=== PATIENT | female | born 1960 | race Caucasian/White ===

== ENCOUNTER 2021-11-30 09:05 | Inpatient (IN) | payer MEDICAID ==
[~2021-11-30] VITALS: Ht 170.2 cm; Wt 104.5 kg
[2021-11-30 09:34] LABS: BASOPHILS % (AUTO) 0.7 % (0-1); EOSINOPHILS # (AUTO) 0.2 X10'3 (0-0.9); EOSINOPHILS % (AUTO) 2.4 % (0-6); HEMATOCRIT 38.5 % (35.0-45.0); HEMOGLOBIN 12.8 g/dl (12.0-16.0); LYMPHOCYTES % (AUTO) 29.2 % (21-51); MEAN CORPUSCULAR HEMOGLOBIN 29.2 PG (27.0-31.0); MEAN CORPUSCULAR HGB CONC 33.2 g/dL (33.0-36.5); MEAN PLATELET VOLUME 7.7 FL (7.4-10.4); MONOCYTES # (AUTO) 0.6 X10'3 (0-0.9); MONOCYTES % (AUTO) 8.7 % (2-12); PLATELET COUNT 333 X10'3 (140-440); RED BLOOD COUNT 4.38 X10'6 (4.20-5.60); WHITE BLOOD COUNT 6.7 X10'3 (4.5-11.0)
[2021-11-30] MEDS ORDERED: ondansetron/PF 4mg/2ml inj IV ONE (09:40)
[2021-11-30] MEDS ORDERED: normal saline 1000ML IV soln IVB ONE (09:40)
[2021-11-30 09:46] LABS: ALANINE AMINOTRANSFERASE 8 U/L (12-78); ALBUMIN 3.3 G/DL (3.4-5.0); ALBUMIN/GLOBULIN RATIO 0.7 (1.1-1.5); ALKALINE PHOSPHATASE 89 IU/L (46-116); ANION GAP 12 (8-16); ASPARTATE AMINO TRANSFERASE 17 U/L (10-37); BILIRUBIN,TOTAL 0.6 MG/DL (0.1-1.0); BLOOD UREA NITROGEN 17 MG/DL (7-18); BUN/CREATININE RATIO 18.3 (6.6-38.0); CALCIUM 9.2 MG/DL (8.5-10.1); CHLORIDE 106 MMOL/L (99-107); CREATININE 0.93 MG/DL (0.40-0.90); GLUCOSE 193 MG/DL (70-104); POTASSIUM 3.7 MMOL/L (3.5-5.1); SODIUM 144 MMOL/L (135-145); TOTAL CARBON DIOXIDE 26.5 MMOL/L (24-32); TOTAL PROTEIN 7.9 G/DL (6.4-8.2); eGFR 62 ML/MIN
[2021-11-30 09:54] LABS: CLARITY,URINE CLOUDY (Clear); COLOR,URINE YELLOW (Yellow); GLUCOSE, URINE NEGATIVE (Neg); KETONES,URINE NEGATIVE (Neg); LEUKOCYTE ESTERASE ,URINE TRACE (Neg); NITRITES, URINE NEGATIVE (Neg); OCCULT BLOOD,URINE LARGE (Neg); PH,URINE 5.5 (4.8-8.0); PROTEIN,URINE 100 mg/dl (Neg); UROBILINOGEN,URINE 0.2 E.U/dL (0.2-1.0)
[2021-11-30 09:54] LABS: LIPASE 444 U/L (73-393)
[2021-11-30 10:02] LABS: UA COLLECTION TYPE CLN CATCH MIDSTREAM
[2021-11-30 10:03] LABS: MUCUS STRANDS MODERATE /LPF (Neg); SQUAMOUS EPITHELIAL CELL,UR MANY /LPF (FEW)
[2021-11-30 10:04] LABS: BACTERIA,URINE 1+ /HPF (Neg); RBC,URINE 20-50 /HPF (0-2)
[2021-11-30] MEDS: morphine 4 MG/ML inj SYRINge IV PRN ×2 (10:23→12:03)
[2021-11-30] MEDS ORDERED: ketorolac trometh. 30mg/ml inj. IV ONE (11:10)
[2021-11-30] MEDS: cefepime 1GM/NS ADD-VANTAGE 100 ML IV ONE ×2 (11:22→12:03)
[2021-11-30] MEDS ORDERED: ondansetron 4mg rapidly disintigrating tab PO PRN (13:00)
[2021-11-30] MEDS ORDERED: POTASSIUM BICARB 20meq eff tab 20 MEQ TABLET.EFF PO PRN ×2 (13:00)
[2021-11-30] MEDS ORDERED: acetaminophen 325mg tablet PO PRN (13:00)
[2021-11-30] MEDS ORDERED: ondansetron/PF 4mg/2ml inj IV PRN (13:00)
[2021-11-30] MEDS ORDERED: magnesium Cl slow-release 64mg tablet PO PRN (13:00)
[2021-11-30] MEDS ORDERED: potassium CL 10mEq/100ml bag 100 ML IV PRN (13:00)
[2021-11-30] MEDS ORDERED: magnesium 2GM in 50ml NS 50 ML IV PRN (13:00)
[2021-11-30] MEDS ORDERED: magnesium 4gm in 100ml NS 100 ML IV PRN (13:00)
[2021-11-30 13:50] LABS: MAGNESIUM 1.5 MG/DL (1.5-2.4); POTASSIUM 3.7 MMOL/L (3.5-5.1)
[2021-11-30] MEDS: morphine 2 MG/ML inj. syringe IV PRN (16:15)
[2021-11-30] MEDS: normal saline 1000ml 1,000 ML IV SCH ×2 (16:16→23:00)
[2021-11-30] MEDS ORDERED: METF-438 PO (17:20)
[2021-11-30] MEDS ORDERED: GABA600T13 PO (17:21)
[2021-11-30] MEDS ORDERED: METO-395 PO (17:21)
[2021-11-30] MEDS ORDERED: BUME1TAB8 PO (17:22)
[2021-11-30] MEDS ORDERED: ATOR80TA PO (17:22)
[2021-11-30] MEDS ORDERED: POTA8CAP20 PO (17:23)
[2021-11-30] MEDS ORDERED: DULO60CA59 PO (17:23)
[2021-11-30] MEDS ORDERED: FURO-150 PO (17:24)
--- NOTE | 2021-11-30 17:41 | NUR ---
PATIENT C/O FEELING HUNGRY AND IS ORDERED TO BE NPO. PAGE SENT TO DR. CRISTOBAL FOR DIET ORDER. PAGER ID: [phone] MESSAGE: ER BED #16 ELIZABETH. PATIENT IS STILL NPO. CAN SHE HAVE DIET ORDER? SHE IS TYPE 2 DIABETIC. BG THIS MORNING WAS 193. THANKS, MILY [phone]
[2021-11-30] MEDS: K and/or MAG REPLACEMENT MC SCH (20:00)
[2021-11-30] MEDS: HYDROcodone/acetaminophen 5mg/325mg tablet PO PRN (20:12)
[2021-11-30] MEDS: tamsulosin 0.4mg capsule PO SCH (20:12)
--- NOTE | 2021-11-30 20:15 | NUR ---
PT DAUGHTER IS APPROVED POC. CRYSTAL: [phone] or [phone]
[2021-11-30] MEDS ORDERED: temazepam 15mg capsule PO PRN (21:00)
[2021-11-30 21:54] VITALS: BP 160/89
[2021-11-30 22:02] LABS: HEMOGLOBIN A1C 6.2 % (4.5-6.2)
[2021-12-01] VITALS (14 sets, daily range): BP systolic 110–156; BP diastolic 51–89
[2021-12-01] MEDS: normal saline 1000ml 1,000 ML IV SCH ×2 (05:18→15:06)
[2021-12-01] MEDS: morphine 2 MG/ML inj. syringe IV PRN ×5 (05:20→22:31)
[2021-12-01 05:56] LABS: BASOPHILS % (AUTO) 0.4 % (0-1); EOSINOPHILS % (AUTO) 0.7 % (0-6); HEMATOCRIT 33.8 % (35.0-45.0); HEMOGLOBIN 11.1 g/dl (12.0-16.0); LYMPHOCYTES # (AUTO) 1.5 X10'3 (1.1-4.8); LYMPHOCYTES % (AUTO) 26.5 % (21-51); MEAN CORPUSCULAR HEMOGLOBIN 29.2 PG (27.0-31.0); MEAN CORPUSCULAR HGB CONC 32.8 g/dL (33.0-36.5); MEAN CORPUSCULAR VOLUME 88.8 FL (78-98); MEAN PLATELET VOLUME 7.8 FL (7.4-10.4); MONOCYTES # (AUTO) 0.6 X10'3 (0-0.9); MONOCYTES % (AUTO) 9.9 % (2-12); NEUTROPHILS # (AUTO) 3.6 X10'3 (1.8-7.7); NEUTROPHILS % (AUTO) 62.5 % (42-75); PLATELET COUNT 251 X10'3 (140-440); RED BLOOD COUNT 3.81 X10'6 (4.20-5.60); RED CELL DISTRIBUTION WIDTH 12.9 % (11.5-14.5); WHITE BLOOD COUNT 5.7 X10'3 (4.5-11.0)
[2021-12-01 06:00] LABS: ALBUMIN 2.7 G/DL (3.4-5.0); ANION GAP 9 (8-16); BLOOD UREA NITROGEN 20 MG/DL (7-18); BUN/CREATININE RATIO 21.1 (6.6-38.0); CALCIUM 8.7 MG/DL (8.5-10.1); CHLORIDE 108 MMOL/L (99-107); CREATININE 0.95 MG/DL (0.40-0.90); GLUCOSE 108 MG/DL (70-104); MAGNESIUM 1.7 MG/DL (1.5-2.4); POTASSIUM 4.2 MMOL/L (3.5-5.1); SODIUM 145 MMOL/L (135-145); TOTAL CARBON DIOXIDE 27.8 MMOL/L (24-32); eGFR 60 ML/MIN
--- NOTE | 2021-12-01 07:01 | NUR ---
Patient in room [facility]TH[facility] 4024. I have received report from demetrius monroe and had the opportunity to ask questions and assume patient care.
[2021-12-01] MEDS: K and/or MAG REPLACEMENT MC SCH ×2 (08:00→20:00)
--- NOTE | 2021-12-01 09:36 | NUR ---
DM Consult: Pt hx T2DM A1C 6.2% this admit per EMR. A1C appropriate no need for DM ed at this time. Addendum: 12/01/21 at [address] Amended: Links added.
--- NOTE | 2021-12-01 10:52 | NUR ---
Page Sent PAGER ID: [phone] MESSAGE: [id number] Jose ACOSTA PT MED REC NEEDS TO BE ADDRESSED. PLEASE THANK YOU . EDIL [id number]
[2021-12-01] MEDS ORDERED: bisacodyl 5mg tablet.DR PO PRN (13:40)
--- NOTE | 2021-12-01 15:12 | NUR ---
GAVE PT DUCOLAX PER DR CRISTOBAL
--- NOTE | 2021-12-01 18:23 | NUR ---
PAGER ID: [phone] MESSAGE: Anni [id number] Shook [id number] please review med rec tonight! pt hasn't had lasix in a few days
--- NOTE | 2021-12-01 18:40 | NUR ---
Problems reprioritized. Patient report given, questions answered & plan of care reviewed with ARPIT AYERS.
[2021-12-01] MEDS ORDERED: iohexol 300 MG/1 ML 50ml polymer ONE (18:53)
[2021-12-01] MEDS ORDERED: midazolam 1 mg/ML 2ml injection ONE (18:59)
[2021-12-01] MEDS ORDERED: ondansetron/PF 4mg/2ml inj ONE (19:00)
[2021-12-01] MEDS ORDERED: etomidate 2mg/ml inj. ONE ×2 (19:00→19:06)
[2021-12-01] MEDS ORDERED: dexamethasone sod phosphate 4mg/ml inj. ONE (19:00)
[2021-12-01] MEDS ORDERED: fentaNYL/PF 50MCG/1 ML 2ML syringe IV PRN ×2 (19:05)
[2021-12-01] MEDS ORDERED: hydrALAZINE 20mg/ml inj. IV PRN (19:05)
[2021-12-01] MEDS ORDERED: enalaprilat dihydrate 2.5mg/2ml vial IV PRN (19:05)
[2021-12-01] MEDS ORDERED: morphine 2 MG/ML inj. syringe IV PRN (19:05)
[2021-12-01] MEDS ORDERED: ondansetron/PF 4mg/2ml inj IV PRN (19:05)
[2021-12-01] MEDS ORDERED: morphine 4 MG/ML inj SYRINge IV PRN (19:05)
[2021-12-01] MEDS ORDERED: ringers solution, lacted 1,000 ML IV SCH (19:05)
[2021-12-01] MEDS ORDERED: sevoflurane 250ml liquid IH ONE (19:06)
[2021-12-01] MEDS ORDERED: phenazopyridine 100mg tablet PO PRN (19:10)
[2021-12-01] MEDS ORDERED: oxybutynin 5mg tablet PO PRN (19:10)
[2021-12-01] MEDS ORDERED: ceFAZolin 1000mg inj ONE (19:12)
[2021-12-01] MEDS ORDERED: fentaNYL/PF 50MCG/1 ML 2ML syringe ONE (20:03)
--- NOTE | 2021-12-01 20:41 | NUR ---
Received from OR via BED, accompanied by Anesthesiologist DR BRAVO and report given by Anesthesiologist AND CRUSHER SUPERVISOR. PT DROWSY BUT APPROPRIATE, DENIES PAIN, RESTING COMFORTABLE. Addendum: 12/01/21 at 2053 by Sepideh Lopez RN Amended: Links added.
--- NOTE | 2021-12-01 21:31 | NUR ---
Report called to receiving nurse. PT NIMESH PAIN, TOLERATING ICE CHIPS. NO C/O. Transferred via BED, NO Belongings. RECEIVING RN AT BEDSIDE TO RECEIVE PT, BLL, CALL LIGHT GIVEN, SIDE RAILS UP X 2, PTS DAUGHTER PRESENT. Special Issues communicated to receiving nurse. YES. Addendum: 12/01/21 at 2136 by Sepideh Lopez RN Amended: Links added.
[2021-12-01] MEDS: tamsulosin 0.4mg capsule PO SCH (22:31)
[2021-12-01] MEDS ORDERED: furosemide 20MG tablet PO PRN (22:55)
[2021-12-01] MEDS: bumetanide 1mg tablet PO SCH (22:55)
[2021-12-01] MEDS: metoprolol succinate 25mg (24-HOUR) SR. Tablet PO SCH (22:55)
[2021-12-02] VITALS (7 sets, daily range): BP systolic 101–155; BP diastolic 47–77
[2021-12-02] MEDS: ceFAZolin/D5W- 1GM premix 50 ML IV SCH ×2 (01:12→07:05)
[2021-12-02] MEDS: normal saline 1000ml 1,000 ML IV SCH ×2 (05:00→14:44)
--- NOTE | 2021-12-02 06:27 | NUR ---
Patient in room ORTHO 4024. I have received report from ANDRIA MUNSON and had the opportunity to ask questions and assume patient care.
[2021-12-02 06:34] LABS: BASOPHILS % (AUTO) 0.2 % (0-1); EOSINOPHILS % (AUTO) 0 % (0-6); HEMATOCRIT 38.3 % (35.0-45.0); HEMOGLOBIN 12.4 g/dl (12.0-16.0); LYMPHOCYTES # (AUTO) 0.7 X10'3 (1.1-4.8); LYMPHOCYTES % (AUTO) 14.2 % (21-51); MEAN CORPUSCULAR HEMOGLOBIN 29.7 PG (27.0-31.0); MEAN CORPUSCULAR HGB CONC 32.4 g/dL (33.0-36.5); MEAN CORPUSCULAR VOLUME 91.5 FL (78-98); MONOCYTES # (AUTO) 0.1 X10'3 (0-0.9); MONOCYTES % (AUTO) 1.7 % (2-12); NEUTROPHILS # (AUTO) 4.2 X10'3 (1.8-7.7); NEUTROPHILS % (AUTO) 83.9 % (42-75); PLATELET COUNT 243 X10'3 (140-440); RED BLOOD COUNT 4.19 X10'6 (4.20-5.60); RED CELL DISTRIBUTION WIDTH 13.3 % (11.5-14.5)
[2021-12-02 06:40] LABS: CHLORIDE 106 MMOL/L (99-107); POTASSIUM 4.4 MMOL/L (3.5-5.1); SODIUM 140 MMOL/L (135-145)
[2021-12-02 06:51] LABS: ANION GAP 13 (8-16); BLOOD UREA NITROGEN 16 MG/DL (7-18); BUN/CREATININE RATIO 18.4 (6.6-38.0); CALCIUM 8.6 MG/DL (8.5-10.1); CREATININE 0.87 MG/DL (0.40-0.90); GLUCOSE 166 MG/DL (70-104); MAGNESIUM 1.7 MG/DL (1.5-2.4); TOTAL CARBON DIOXIDE 21.2 MMOL/L (24-32); eGFR 67 ML/MIN
[2021-12-02] MEDS: bumetanide 1mg tablet PO SCH (07:04)
[2021-12-02] MEDS: morphine 2 MG/ML inj. syringe IV PRN (07:04)
[2021-12-02] MEDS: gabapentin 300mg capsule PO SCH ×3 (07:04→15:36)
[2021-12-02] MEDS: duloxetine 30mg CAPSULE.DR PO SCH ×2 (07:05→20:35)
[2021-12-02] MEDS: potassium chloride 8mEq ER tablet PO SCH (07:05)
[2021-12-02] MEDS: metoprolol succinate 25mg (24-HOUR) SR. Tablet PO SCH (07:05)
[2021-12-02] MEDS: atorvastatin 20mg tablet PO SCH (07:05)
[2021-12-02] MEDS: K and/or MAG REPLACEMENT MC SCH ×2 (08:00→20:00)
[2021-12-02] MEDS: polyethylene glycol 3350 17gm powd pack PO SCH ×2 (09:18→20:35)
[2021-12-02] MEDS: docusate sod 100mg capsule PO SCH ×2 (09:18→20:35)
[2021-12-02] MEDS: HYDROcodone/acetaminophen 5mg/325mg tablet PO PRN (15:36)
--- NOTE | 2021-12-02 18:21 | NUR ---
Problems reprioritized. Patient report given, questions answered & plan of care reviewed with ANDRIA Montaño.
[2021-12-02] MEDS: tamsulosin 0.4mg capsule PO SCH (20:35)
[2021-12-03] MEDS: normal saline 1000ml 1,000 ML IV SCH (00:50)
[2021-12-03] MEDS: gabapentin 300mg capsule PO SCH ×2 (00:51→10:33)
[2021-12-03 05:53] LABS: BASOPHILS % (AUTO) 0.5 % (0-1); EOSINOPHILS % (AUTO) 0.8 % (0-6); HEMATOCRIT 32.5 % (35.0-45.0); HEMOGLOBIN 10.9 g/dl (12.0-16.0); LYMPHOCYTES # (AUTO) 1.9 X10'3 (1.1-4.8); LYMPHOCYTES % (AUTO) 31.8 % (21-51); MEAN CORPUSCULAR HEMOGLOBIN 29.5 PG (27.0-31.0); MEAN CORPUSCULAR HGB CONC 33.4 g/dL (33.0-36.5); MEAN CORPUSCULAR VOLUME 88.3 FL (78-98); MEAN PLATELET VOLUME 8.1 FL (7.4-10.4); MONOCYTES # (AUTO) 0.6 X10'3 (0-0.9); MONOCYTES % (AUTO) 9.8 % (2-12); NEUTROPHILS # (AUTO) 3.4 X10'3 (1.8-7.7); NEUTROPHILS % (AUTO) 57.1 % (42-75); PLATELET COUNT 242 X10'3 (140-440); RED BLOOD COUNT 3.68 X10'6 (4.20-5.60); RED CELL DISTRIBUTION WIDTH 12.7 % (11.5-14.5); WHITE BLOOD COUNT 5.9 X10'3 (4.5-11.0)
--- NOTE | 2021-12-03 06:00 | NUR ---
Patient in room ORTHO 4024A. I have received report from ANDRIA Kennedy and had the opportunity to ask questions and assume patient care.
[2021-12-03 06:13] LABS: ALBUMIN 2.9 G/DL (3.4-5.0); ANION GAP 10 (8-16); BLOOD UREA NITROGEN 18 MG/DL (7-18); BUN/CREATININE RATIO 21.2 (6.6-38.0); CALCIUM 8.5 MG/DL (8.5-10.1); CHLORIDE 105 MMOL/L (99-107); CREATININE 0.85 MG/DL (0.40-0.90); GLUCOSE 108 MG/DL (70-104); MAGNESIUM 1.8 MG/DL (1.5-2.4); POTASSIUM 3.6 MMOL/L (3.5-5.1); SODIUM 142 MMOL/L (135-145); TOTAL CARBON DIOXIDE 27.2 MMOL/L (24-32); eGFR 68 ML/MIN
[2021-12-03] MEDS: metoprolol succinate 25mg (24-HOUR) SR. Tablet PO SCH (08:00)
[2021-12-03] MEDS: K and/or MAG REPLACEMENT MC SCH (08:00)
[2021-12-03 10:00] VITALS: BP 126/54
[2021-12-03] MEDS: docusate sod 100mg capsule PO SCH (10:34)
[2021-12-03] MEDS: bumetanide 1mg tablet PO SCH (10:34)
[2021-12-03] MEDS: duloxetine 30mg CAPSULE.DR PO SCH (10:34)
[2021-12-03] MEDS: potassium chloride 8mEq ER tablet PO SCH (10:34)
[2021-12-03] MEDS: atorvastatin 20mg tablet PO SCH (10:35)
[2021-12-03] MEDS: HYDROcodone/acetaminophen 5mg/325mg tablet PO PRN (10:35)
[2021-12-03] MEDS ORDERED: ONDA4TAB12 PO (11:50)
[2021-12-03] MEDS ORDERED: HYDR-3964 PO (11:50)
[2021-12-03] MEDS ORDERED: PHEN-786 PO (11:50)
[2021-12-03] MEDS ORDERED: tamsulosin capsule PO (11:50)
[2021-12-03] MEDS ORDERED: CEPH500C2 PO (11:50)
[2021-12-03] MEDS ORDERED: OXYB5TAB16 PO (11:50)
== END 2021-12-03 16:25 | disposition home or self-care (01) | DRG 446 ==
LOC: ER 09:06 → ED HOLD 13:03 → ORTHO 4S 20:47
PROVIDERS: ADMIT Internal Medicine; ATTEND Internal Medicine
PROC: 0TC68ZZ Extirpation of Matter from Right Ureter, Via Natural or Artificial Opening Endoscopic (ICD-10-PCS; 2021-12-01)
PROC: 0T768DZ Dilation of Right Ureter with Intraluminal Device, Via Natural or Artificial Opening Endoscopic (ICD-10-PCS; 2021-12-01)
PROC: BT1D1ZZ Fluoroscopy of Right Kidney, Ureter and Bladder using Low Osmolar Contrast (ICD-10-PCS; principal; 2021-12-01 19:06)
DX: N13.2 Hydronephrosis with renal and ureteral calculous obstruction (principal); J45.901 Unspecified asthma with (acute) exacerbation; E11.9 Type 2 diabetes mellitus without complications; E78.5 Hyperlipidemia, unspecified; F32.A Depression, unspecified; Z20.822 Contact with and (suspected) exposure to COVID-19; I10 Essential (primary) hypertension; K59.00 Constipation, unspecified; I25.10 Atherosclerotic heart disease of native coronary artery without angina pectoris; Z79.84 Long term (current) use of oral hypoglycemic drugs; Z95.5 Presence of coronary angioplasty implant and graft
CPT/HCPCS: 36415; 71045; 74176; 74420; 76000; 80048; 80053; 81001; 82948; 83036; 83690; 83735; 83880; 84132; 84484; 85025; 87081; 93005; 96361; 96374; 96375; 96376; 99285; A4615; A4618; A7000; C1758; C1769; C1894; C2617; G0378; J0690; J0692; J1100; J1885; J2250; J2270; J2405; J3010; J3490; J7030; Q9967